=== PATIENT | male | born 1960 | race Caucasian/White ===

== ENCOUNTER → 2021-08-24 | Emergency (ER) | payer OTHER ==
[~2021-08-24] VITALS: Ht 175.3 cm; Wt 84.4 kg
[~2021-08-24] MED LIST: CARVEDILOL3.125 M1; HYDROXYCHLOROQ200 MG; LEVOTHYROXINE75 MCG; RAYOS5 MG
== END | disposition left against medical advice (07) ==
LOC: ER 16:27
DX: S40.011A Contusion of right shoulder, initial encounter (principal); W18.09XA Striking against other object with subsequent fall, initial encounter; Y93.41 Activity, dancing; Y92.89 Other specified places as the place of occurrence of the external cause; Y99.8 Other external cause status